=== PATIENT | female | born 1975 ===

== ENCOUNTER 2021-03-23 21:17 | Emergency (ER) | payer SELFPAY ==
[2021-03-23] MEDS ORDERED: hydrOXYzine Pamoate 25 MG Cap PO ONE (23:55)
--- NOTE | 2021-03-23 23:59 | EDM.PDOC ---
ED HPI GENERAL MEDICAL PROBLEM - General Chief Complaint: Drug or Alcohol Abuse Stated Complaint: DETOX Time Seen by Provider: 03/23/21 23:43 - History of Present Illness INITIAL COMMENTS - FREE TEXT/NARRATIVE: HISTORY AND PHYSICAL: History of present illness: Is a 46-year-old female with a history significant for opiate use disorder who has been on Suboxone for several years and has recently stopped her Suboxone. Patient reports that she has moved to [place] and does not have a physician to assist her with her symptoms. Patient reports that yesterday her withdrawal symptoms were so severe that she used heroin. Patient denies any recent fevers, shakes, chills, nausea, vomiting, diarrhea, dysuria, frequency, urgency, chest pain, shortness of breath. Patient reports that she is able to tolerate p.o. solids and liquids well. Patient reports that she feels anxious and jittery. Review of systems: As per history of present illness and below otherwise all systems reviewed and negative. Past medical history: As per history of present illness and as reviewed below otherwise noncontributory. Surgical history: As per history of present illness and as reviewed below otherwise noncontributory. Social history: No reported history of drug abuse. Family history: As per history of present illness and as reviewed below otherwise noncontributory. Physical exam: This patient was seen and evaluated during the 2019 SARS-CoV-2 novel coronavirus pandemic period. Community viral transmission is ongoing at time of this encounter and the emergency department is operating under pandemic response procedures. Constitutional: Patient is oriented to person, place, and time. Appears well- developed and well-nourished. No distress. HEENT: Moist mucous membranes Head: Normocephalic and atraumatic Eyes: Right eye exhibits no discharge. Left eye exhibits no discharge. No scleral icterus Neck: Normal range of motion. No tracheal deviation present. Cardiovascular: Normal rate and regular rhythm. Pulmonary: Effort normal, no respiratory distress. Abdominal: No distention Musculoskeletal: Normal range of motion Neurologic: Alert and oriented to person, place and time. Skin: [place], warm and dry. Psychiatric: Normal mood and affect. Behavior is normal. Judgment and thought content normal. Nursing note and vital signs have been reviewed Assessment and plan: This is a 46-year-old female who presents ER today secondary to opiate use disorder and withdrawal symptoms after stopping her Suboxone. Patient did use heroin yesterday. I have discussed with the patient that I would be unable to prescribe Suboxone for her through the ED as I do not have an [place] license and I recommend that she follow-up with an outpatient physician to help her with her symptoms and to restart her on Suboxone. Patient reports that she does have a name of a physician in [facility] who will assist her that she can schedule to see. Patient be given a dose of Vistaril here in the ED and I will write her a course for 7 days to assist her with her anxiety. Reassessment at the time of disposition demonstrates that the patient is in no acute distress. The patient has remained stable throughout the entire ED visit and is without objective evidence for acute process requiring urgent intervention or hospitalization. The patient is stable for discharge, counseling is provided as documented above, discussed symptomatic treatment and specific conditions for return. I have spoken with the patient/caregiver and discussed todays findings, in addition to providing specific details for the plan of care. Questions are answered and there is agreement with the plan. Definitive disposition and diagnosis as appropriate pending reevaluation and review of above. Past Medical History - Past Health History Medical/Surgical History: Denies Medical/Surgical History - Infectious Disease History Infectious Disease History: Reports: None Social & Family History - Tobacco Use Tobacco Use Status *Q: Current Every Day Tobacco User Years of Tobacco use: 20 Packs/Tins Daily: 1 Second Hand Smoke Exposure: Yes - Caffeine Use Caffeine Use: Reports: None, Coffee - Recreational Drug Use Recreational Drug Use: Yes Recreational Drug Type: Reports: Heroin ED ROS GENERAL - Review of Systems Review Of Systems: See Below ED EXAM, GENERAL - Physical Exam Exam: See Below Course - Vital Signs Last Recorded V/S: Last Vital Signs Temp 98.2 F 03/23/21 23:44 Pulse 100 03/23/21 23:44 Resp 20 03/23/21 23:44 BP 155/95 H 03/23/21 23:44 Pulse Ox 100 03/23/21 23:44 - Orders/Labs/Meds Orders: Active Orders 24 hr Category Date Time Status hydrOXYzine pamoate [Vistaril] Med 03/23/21 23:55 Once 25 mg PO ONETIME ONE Departure - Departure Time of Disposition: 23:57 Disposition: Home, Self-Care 01 Condition: Good Clinical Impression: Opioid use disorder - Discharge Information Instructions: Leg Cramps, Opioid Use Disorder Referrals: PCP,None [Primary Care Provider] - Forms: ED Department Discharge Additional Instructions: Your seen and evaluated in the ER today secondary to sinus symptoms consistent with opioid withdrawal. Unfortunately, we are unable to initiate Suboxone treatment here in the emergency department. Please follow-up as an outpatient with a Suboxone specialist to assist you with reinitiating your Suboxone. You will be given a prescription for Vistaril to assist you with your anxiety until you are able to see the specialist. The following information is given to patients seen in the emergency department who are being discharged to home. This information is to outline your options for follow-up care. We provide all patients seen in our emergency department with a follow-up referral. The need for follow-up, as well as the timing and circumstances, are variable depending upon the specifics of your emergency department visit. If you don't have a primary care physician on staff, we will provide you with a referral. We always advise you to contact your personal physician following an emergency department visit to inform them of the circumstance of the visit and for follow-up with them and/or the need for any referrals to a consulting specialist. The emergency department will also refer you to a specialist when appropriate. This referral assures that you have the opportunity for follow-up care with a specialist. All of these measure are taken in an effort to provide you with optimal care, which includes your follow-up. Under all circumstances we always encourage you to contact your private physician who remains a resource for coordinating your care. When calling for follow-up care, please make the office aware that this follow-up is from your recent emergency room visit. If for any reason you are refused follow-up, please contact the [facility] Emergency Department at and asked to speak to the emergency department charge nurse. [facility] [address] [place] [address] [id number] [address] [address] Sepsis Event Note (ED) - Focused Exam Vital Signs: Vital Signs Temp Pulse Resp BP Pulse Ox 03/23/21 23:44 98.2 F 100 20 155/95 H 100 - My Orders Last 24 Hours: My Active Orders 03/23/21 23:55 hydrOXYzine pamoate [Vistaril] 25 mg PO ONETIME ONE - Assessment/Plan Last 24 Hours: My Active Orders 03/23/21 23:55 hydrOXYzine pamoate [Vistaril] 25 mg PO ONETIME ONE
== END 2021-03-24 00:22 | disposition home or self-care (01) ==
LOC: MW.ED 21:17
DX: F11.99 Opioid use, unspecified with unspecified opioid-induced disorder (principal); Z72.0 Tobacco use
CPT/HCPCS: 99283; A9270